=== PATIENT | female | born 1950 | race Caucasian/White ===

== ENCOUNTER 2022-02-04 07:37 | Observation (INO) ==
[2022-02-04] MEDS ORDERED: ASPIRIN 325 MG TABLET PO STA (08:09)
[2022-02-04 08:15] LABS: Basophils % 0.2 % (0.0-0.8); Eosinophils % 0.4 % (0.00-10.9); Hematocrit 39.1 VOL% (35.7-47.0); Hemoglobin 12.4 GM/DL (12.0-16.0); Immature Granulocytes % 0.2 %; Immature Granulocytes Absolute 0.02 #; Lymphocytes # 0.7 10*3/uL (1.4-4.0); Lymphocytes % 8.1 % (21.3-54.2); Mean Corpuscular HGB Conc 31.7 GM/DL (32-36); Mean Corpuscular Volume 92.2 FL (87-102); Mean Platelet Volume 9.7 FL (9.6-12.0); Monocytes # 0.4 10*3/uL (0.11-0.8); Monocytes % 4.9 % (1.7-12.7); Neutrophils % 86.2 % (38.7-73.9); Platelet Count 279 T/CUMM (130-400); Red Blood Count 4.24 MC/CUMM (3.8-5.5); Red Cell Distribution Width 13.2 % (9.3-17.3); White Blood Count 8.5 T/CUMM (4-12)
[2022-02-04 08:30] LABS: Albumin 3.8 G/DL (3.4-5.0); Bilirubin,Total 0.6 MG/DL (0.20-1.00); Potassium 3.8 MMOL/L (3.5-5.1); Total Protein 6.7 G/DL (6.4-8.2)
[2022-02-04] MEDS ORDERED: SODIUM CHLORIDE 0.9% 1,000 ML IV STA (08:54)
[2022-02-04] MEDS ORDERED: HYDROmorphone 1 MG/1 ML SYRINGE IV STA (08:57)
[2022-02-04] MEDS ORDERED: ONDANSETRON 4 MG/2 ML VIAL IV STA (08:57)
[2022-02-04 09:57] LABS: Bilirubin,Urine Negative (Negative); Blood, Urine Negative (Negative); Glucose,Urine (UA) Negative (Negative); Ketones,Urine Negative (Negative); Mucus,Urine Occasional /LPF (Occasional); Nitrite,Urine Negative (Negative); Protein,Urine Negative (Negative); RBC,Urine 1 /HPF (0-4); Urine Appearance Clear (Clear); Urine Color Yellow (Yellow); Urine Specific Gravity 1.015 (1.001-1.035); Urine Urobilinogen 0.2 eU/dL (<2.0)
[2022-02-04 10:57] LABS: Barbiturates Screen,Urine Negative (Negative); Benzodiazepines Screen,Urine Negative (Negative); Cannabinoid Screen,Urine Negative (Negative); Opiate Screen,Urine Negative (Negative); Phencyclidine Screen,Urine Negative (Negative)
[2022-02-04] MEDS ORDERED: ACETAMINOPHEN 325 MG TABLET PO PRN (12:49)
[2022-02-04] MEDS ORDERED: HYDROmorphone 2 MG TABLET PO PRN (12:49)
[2022-02-04] MEDS ORDERED: ONDANSETRON 4 MG/2 ML VIAL IV PRN (12:49)
[2022-02-04] MEDS ORDERED: SODIUM CHLORIDE 0.9% 1,000 ML IV SCH (12:49)
[2022-02-04] MEDS: HYDROmorphone 1 MG/1 ML SYRINGE IV PRN (14:34)
[2022-02-04] MEDS: SODIUM CHLORIDE 0.9% 1,000 ML IV SCH (14:34)
[2022-02-04] MEDS: MIDODRINE 2.5 MG TABLET PO SCH (21:00)
[2022-02-04] MEDS ORDERED: RIVAROXABAN 20 MG TABLET PO SCH (21:00)
[2022-02-04] MEDS: DOCUSATE SODIUM 100 MG CAPSULE PO SCH (21:00)
[2022-02-04] MEDS: ATORVASTATIN 40 MG TABLET PO SCH (21:00)
[2022-02-05] MEDS: SODIUM CHLORIDE 0.9% 1,000 ML IV SCH ×2 (02:05→16:00)
[2022-02-05] MEDS: LEVOTHYROXINE 75 MCG TABLET PO SCH (05:32)
[2022-02-05 07:40] LABS: Basophils % 0.7 % (0.0-0.8); Eosinophils # 0.1 10*3/uL (0.0-0.87); Hematocrit 33.7 VOL% (35.7-47.0); Hemoglobin 10.8 GM/DL (12.0-16.0); Immature Granulocytes % 0.5 %; Immature Granulocytes Absolute 0.02 #; Lymphocytes # 0.7 10*3/uL (1.4-4.0); Lymphocytes % 17.5 % (21.3-54.2); Mean Corpuscular Volume 91.8 FL (87-102); Mean Platelet Volume 9.4 FL (9.6-12.0); Monocytes # 0.3 10*3/uL (0.11-0.8); Monocytes % 7.7 % (1.7-12.7); Neutrophils % 70.6 % (38.7-73.9); Platelet Count 225 T/CUMM (130-400); Red Blood Count 3.67 MC/CUMM (3.8-5.5); Red Cell Distribution Width 13.4 % (9.3-17.3)
[2022-02-05 08:23] LABS: Bilirubin,Total 0.9 MG/DL (0.20-1.00); Calcium 8.3 MG/DL (8.5-10.1); Osmolality,Calculated 289.6 MOS/KG (273-304); Potassium 3.6 MMOL/L (3.5-5.1); Total Protein 5.6 G/DL (6.4-8.2)
[2022-02-05 08:58] LABS: Risk Ratio 2.94; VLDL Cholesterol 17.8 MG/DL
[2022-02-05] MEDS: PANTOPRAZOLE 40 MG TABLET PO SCH (09:16)
[2022-02-05] MEDS: ASPIRIN EC 81 MG TABLET PO SCH (09:16)
[2022-02-05] MEDS: MIDODRINE 2.5 MG TABLET PO SCH ×2 (09:16→21:43)
[2022-02-05] MEDS: DOCUSATE SODIUM 100 MG CAPSULE PO SCH ×2 (09:16→21:43)
[2022-02-05] MEDS: CITALOPRAM 20 MG TABLET PO SCH (09:16)
[2022-02-05] MEDS: TRIAMTERENE/HCTZ 37.5-25 MG TABLET PO SCH (09:22)
[2022-02-05] MEDS: ENOXAPARIN 40 MG/0.4 ML SYRINGE SUBCUT SCH (09:23)
[2022-02-05] MEDS: ATORVASTATIN 40 MG TABLET PO SCH (21:43)
[2022-02-05] MEDS: HYDROmorphone 1 MG/1 ML SYRINGE IV PRN (22:00)
[2022-02-06] MEDS: SODIUM CHLORIDE 0.9% 1,000 ML IV SCH (04:21)
[2022-02-06] MEDS: LEVOTHYROXINE 75 MCG TABLET PO SCH (05:38)
[2022-02-06] MEDS ORDERED: LEVOTHYROXINE 75 MCG TABLET PO SCH (06:30)
[2022-02-06] MEDS: PANTOPRAZOLE 40 MG TABLET PO SCH (08:13)
[2022-02-06] MEDS: TRIAMTERENE/HCTZ 37.5-25 MG TABLET PO SCH (08:14)
[2022-02-06] MEDS: DOCUSATE SODIUM 100 MG CAPSULE PO SCH (08:14)
[2022-02-06] MEDS: CITALOPRAM 20 MG TABLET PO SCH (08:14)
[2022-02-06] MEDS: MIDODRINE 2.5 MG TABLET PO SCH (08:14)
[2022-02-06] MEDS: ASPIRIN EC 81 MG TABLET PO SCH (08:14)
[2022-02-06] MEDS: ENOXAPARIN 40 MG/0.4 ML SYRINGE SUBCUT SCH (08:18)
[2022-02-06 08:39] LABS: Calcium 8.2 MG/DL (8.5-10.1); Osmolality,Calculated 289.4 MOS/KG (273-304); Potassium 3.4 MMOL/L (3.5-5.1); Total Protein 5.6 G/DL (6.4-8.2)
[2022-02-06] MEDS ORDERED: POTASSIUM CHLORIDE 20 MEQ TABLET PO ONE (09:00)
[2022-02-06 11:55] VITALS: BP 154/95
== END 2022-02-06 15:00 | disposition home or self-care (01) ==
LOC: N.EDINP 07:37 → N.ED 07:37 → N.EDINP 13:12 → N.2E 13:39
PROVIDERS: ADMIT Family Medicine; ATTEND Family Medicine